=== PATIENT | female | born 1945 | race Caucasian/White ===

== ENCOUNTER → 2018-05-03 | Outpatient (CLI) | payer MEDICARE | END | disposition home or self-care (01) | LOC: RAH 11:19 | PROVIDERS: ATTEND Physical Medicine & Rehabilitation | DX: R60.0 Localized edema (principal) | CPT/HCPCS: 93971 ==

== ENCOUNTER → 2018-05-17 | Outpatient (CLI) | payer MEDICARE | END | disposition home or self-care (01) | LOC: RAH 15:15 | PROVIDERS: ATTEND Physical Medicine & Rehabilitation | DX: I77.1 Stricture of artery (principal); I70.90 Unspecified atherosclerosis; I77.9 Disorder of arteries and arterioles, unspecified | CPT/HCPCS: 93925 ==

== ENCOUNTER → 2019-03-08 | Outpatient (CLI) | payer MEDICARE | END | disposition home or self-care (01) | LOC: RAH 11:04 | PROVIDERS: ATTEND Internal Medicine Nephrology | DX: M47.812 Spondylosis without myelopathy or radiculopathy, cervical region (principal); M85.88 Other specified disorders of bone density and structure, other site; I65.29 Occlusion and stenosis of unspecified carotid artery | CPT/HCPCS: 72040 ==

== ENCOUNTER → 2022-07-21 | Outpatient (CLI) | payer MEDICARE | END | disposition home or self-care (01) | LOC: RAH 13:05 | PROVIDERS: ATTEND Physical Medicine & Rehabilitation | DX: M19.012 Primary osteoarthritis, left shoulder (principal); M25.561 Pain in right knee; M25.512 Pain in left shoulder; M25.862 Other specified joint disorders, left knee; M17.0 Bilateral primary osteoarthritis of knee | CPT/HCPCS: 73030 ==

== ENCOUNTER → 2023-01-03 | Outpatient (CLI) | payer MEDICARE | END | disposition home or self-care (01) | LOC: RAH 10:16 | PROVIDERS: ATTEND Physical Medicine & Rehabilitation | DX: M19.012 Primary osteoarthritis, left shoulder (principal); M75.42 Impingement syndrome of left shoulder; M25.512 Pain in left shoulder | CPT/HCPCS: 73221 ==

== ENCOUNTER → 2025-01-01 | Outpatient (CLI) | payer OTHER ==
--- NOTE | 2025-01-01 12:28 | HMCIMG ---
LUMBAR W FLEXION/EXTENSION REASON: VERTEBROGENIC LOW BACK PAIN. COMPARISON: None TECHNIQUE: 4 images of lumbar spine were obtained including flexion and extension view. FINDINGS: Disc space narrowings are seen at the L4-5 and L5-S1 levels. Vascular calcifications are seen. There is straightening of normal lordotic lumbar curvature which may be related to muscle spasm or positioning. No loss of vertebral height is seen. IMPRESSION: Findings as described above.
== END | disposition home or self-care (01) ==
LOC: RAH 10:02
PROVIDERS: ATTEND Physical Medicine & Rehabilitation
DX: M48.07 Spinal stenosis, lumbosacral region (principal); M54.51 Vertebrogenic low back pain
CPT/HCPCS: 72114

== ENCOUNTER → 2025-05-17 | Outpatient (CLI) | payer OTHER ==
--- NOTE | 2025-05-17 18:03 | HMCIMG ---
EXAM: MR Lumbar Spine without Intravenous Contrast. CLINICAL HISTORY: 79-year-old female with spondylosis without myelopathy. TECHNIQUE: Magnetic resonance images of the lumbar spine without intravenous contrast in multiple planes. CONTRAST: Without. COMPARISON: None provided. FINDINGS: VERTEBRAE: No acute fracture or focal osseous lesion. Generalized marrow signal is unremarkable. ALIGNMENT: Bony alignment is anatomic. SPINAL CORD: Normal signal and contour. DISCS/DEGENERATIVE CHANGES: Multilevel facet arthropathy and hypertrophy of the ligamentum flavum are seen contributing to spinal neural foraminal narrowing and spinal stenosis at various levels, including L4-L5 and L5-S1. L1-L2: Moderate narrowing of the L1-L2 disc space with moderate bulging. Small right lateral disc protrusion measuring 3.6 mm with mild narrowing of the right-sided neural foramen. L2-L3: Mild disc bulging seen with mild narrowing of the bilateral neural foramina. L3-L4: Severe diffuse disc bulging is seen with a small left lateral disc protrusion 4.3 mm and moderate narrowing of left-sided neural foramen. L4-L5: Severe diffuse disc bulging seen with a moderate right lateral disc protrusion 5.9 mm with narrowing of the right-sided neural foramen. L5-S1: Severe diffuse disc bulging seen with moderate bilateral neural foraminal narrowing. A small central posterior disc protrusion at L5-S1, 3.7 mm, and a moderate left lateral disc protrusion at 4.2 mm with narrowing of the left lateral recess, possible foraminal. PARASPINAL SOFT TISSUES: Paravertebral soft tissues are unremarkable. IMPRESSION: 1. Multilevel degenerative changes including facet arthropathy, ligamentum flavum hypertrophy, and disc bulging/protrusions, resulting in neural foraminal narrowing and spinal stenosis at various levels, most pronounced at L4-L5 and L5-S1. 2. Findings better appertiated from the prior XR Lumbar Spine dated 01/01/2025, 10:25 am /[place]
== END | disposition home or self-care (01) ==
LOC: RAH 13:25
PROVIDERS: ATTEND Physical Medicine & Rehabilitation
DX: M47.817 Spondylosis without myelopathy or radiculopathy, lumbosacral region (principal); M48.07 Spinal stenosis, lumbosacral region; M51.379 Other intervertebral disc degeneration, lumbosacral region without mention of lumbar back pain or lower extremity pain; M41.9 Scoliosis, unspecified
CPT/HCPCS: 72148